=== PATIENT | male | born 1940 | race Caucasian/White ===

== ENCOUNTER → 2018-08-17 | Outpatient (CLI) | payer MEDICARE, OTHER ==
--- NOTE | 2018-08-17 09:41 | WOMENS IMAGING REPORT ---
EXAM DESCRIPTION: BONE DENSITY HIP/SPINE COMPLETED DATE/TIME: 08/17/2018 9:07 am REASON FOR STUDY: M81.0 AGE-RELATED OSTEOPOROSIS WITHOUT CURRENT PATHOLOGICAL FRACTURE M81.0 AGE-RE LATED OSTEOPOROSIS W/O CURRENT PATHOLOGICAL FRAC COMPARISON: None. TECHNIQUE: Dual-Energy X-ray Absorptiometry (DEXA) of the AP Spine and Hip. LIMITATIONS: None. FINDINGS: LUMBAR SPINE: The bone mineral density (BMD) measured from L1-L4 in the AP projection correlates with a T-score of 2.0, which is normal as defined by the World Health Organization. HIP: The bone mineral density (BMD) measured in the left hip correlates with a T-score of -1.1, which is o steopenia as defined by the World Health Organization. IMPRESSION: 1. LUMBAR SPINE: NORMAL. 2. HIP: OSTEOPENIA. COMMENT: The World Health Organization defines low BMD as follows: T-score: Normal: Greater than -1.0 Osteopenia: Between -1.0 and -2.5 Osteoporosis: Less than -2.5 without fractures Established osteoporosis: Less than -2.5 with fractures In general, you may wish to consider: Diagnosis Treatment Follow-up DEXA Normal BMD Prevention 2-3 years Osteopenia Prevention/Therapy 1-2 years Osteoporosis Therapy Yearly TECHNICAL DOCUMENTATION: JOB ID: [id number] [employer]- All Rights Reserved Reading location - IP/workstation name: [email or web address]
== END ==
LOC: WI 08:51
PROVIDERS: ATTEND Urology
DX: M81.0 Age-related osteoporosis without current pathological fracture (principal)
CPT/HCPCS: 77080

== ENCOUNTER → 2018-09-21 | Outpatient (CLI) | payer MEDICARE, OTHER ==
--- NOTE | 2018-09-21 16:16 | RADIOLOGY REPORT (SQ) ---
EXAM DESCRIPTION: NM WHOLE BODY BONE SCAN COMPLETED DATE/TIME: 09/21/2018 4:00 pm REASON FOR STUDY: C61 MALIGNANT NEOPLASM OF PROSTATE C61 MALIGNANT NEOPLASM OF PROSTATE COMPARISON: None available. RADIONUCLIDE AND DOSE: 20.5 millicuries Tc99m MDP. The route of agent administration: Intravenous. ADDITIONAL DRUGS AND DOSES: None. TECHNIQUE: Routine delayed images at 3 hour post radionuclide injection acquired of the bony skeleto n including anterior and posterior whole-body projections and additional focused images as needed. LIMITATIONS: None. FINDINGS: BONES: Solitary focus of fairly uptake most pronounced on posterior views, L1 to the left of midline. While this could be related to posterior element DJD, the uptake is fairly pronounced an d more than expected for simple facet arthropathy. T7-8 disc disease is also suggested. Mild hetero geneous uptake in the sternum, likely related to sternoclavicular arthropathy. Degenerative appearin g uptake in the shoulders and knees. KIDNEYS: Symmetric excretion without obstruction. OTHER: No other significant finding. IMPRESSION: 1. Focal abnormal L1 uptake in the lumbar spine. Potential oligometastatic disease. Consider lumbar spine CT correlation. Other changes are likely degenerative. COMMENT: Quality measure 147: No available prior imaging studies for comparison TECHNICAL DOCUMENTATION: JOB ID: [id number] [email or web address]- All Rights Reserved Reading location - IP/workstation name: [email or web address]
== END ==
LOC: RAD 10:35
PROVIDERS: ATTEND Internal Medicine Medical Oncology
DX: C61 Malignant neoplasm of prostate (principal)
CPT/HCPCS: 78306; A9561; Q9969

== ENCOUNTER 2019-01-17 16:03 | Emergency (ER) | payer MEDICARE, OTHER ==
[2019-01-17] MEDS ORDERED: ASPIRIN 81 MG TABLET, CHEWABLE PO ONE (16:14)
[2019-01-17 16:39] LABS: ABSOLUTE BASOPHILS # (AUTO) 0.1 10^3/uL (0.0-0.2); ABSOLUTE EOSINOPHILS # (AUTO) 0.1 10^3/uL (0.0-0.6); ABSOLUTE LYMPHOCYTES (AUTO) 1.4 10^3/uL (0.5-4.7); ABSOLUTE MONOCYTES (AUTO) 0.7 10^3/uL (0.1-1.4); ABSOLUTE NEUT (AUTO) 7.2 10^3/uL (1.7-8.2); BASOPHILS % (AUTO) 0.7 % (0-2); EOSINOPHILS % (AUTO) 1.3 % (0-6); HEMATOCRIT 35.7 % (37.9-51.0); HEMOGLOBIN 11.6 g/dL (13.5-17.0); LYMPHOCYTES % (AUTO) 14.8 % (13-45); MEAN CORPUSCULAR HEMOGLOBIN 28.1 pg (27.0-33.4); MEAN CORPUSCULAR HGB CONC 32.6 g/dL (32.0-36.0); MEAN CORPUSCULAR VOLUME 86 fl (80-97); MONOCYTES % (AUTO) 7.2 % (3-13); PLATELET COUNT 306 10^3/uL (150-450); RED BLOOD COUNT 4.13 10^6/uL (4.35-5.55); RED CELL DISTRIBUTION WIDTH 15.6 % (11.5-14.0); TOTAL CELLS COUNTED % (AUTO) 100 %; WHITE BLOOD COUNT 9.4 10^3/uL (4.0-10.5)
[2019-01-17 16:58] LABS: ALBUMIN 4.4 g/dL (3.5-5.0); ALKALINE PHOSPHATASE 130 U/L (38-126); ANION GAP 12 (5-19); ASPARTATE AMINO TRANSFERASE 49 U/L (17-59); BILIRUBIN,DIRECT 0.4 mg/dL (0.0-0.4); BILIRUBIN,TOTAL 0.6 mg/dL (0.2-1.3); BLOOD UREA NITROGEN 17 mg/dL (7-20); CALCIUM 9.5 mg/dL (8.4-10.2); CARBON DIOXIDE 27 mmol/L (22-30); CHLORIDE 98 mmol/L (98-107); CREATINE KINASE 246 U/L (55-170); GLUCOSE 283 mg/dL (75-110); POTASSIUM 4.7 mmol/L (3.6-5.0); TOTAL PROTEIN 7.4 g/dL (6.3-8.2)
--- NOTE | 2019-01-17 16:58 | ER Document Report ---
ED Cardiac - General Chief Complaint: Chest Pain Stated Complaint: CHEST PAIN Time Seen by Provider: 01/17/19 16:46 Notes: Patient is complaining of anterior, substernal chest pains. Patient has an extensive and long history of coronary artery disease and cardiac disease and surgeries. In 1996, patient had an NH and had coronary artery franco nts placed. In the following year, 1997, patient underwent coronary bypass surgery. In 2015, patient had his aortic valve replaced and there was a repair of his mitral valve. He did well following these surgical procedures until the recent weeks when he started having more chest pains. Patient and his are in the process of moving and have been lifting boxes. Patient says that over the past few weeks he is experiencing more chest pains. He takes occasional nitroglycerin and gets relief. Today, he was pushing a filing cabinet when he developed his chest pain. He took a nitroglycerin and got relief of the chest pain. Later, he was sitting and eating lunch and he had recurrent pain so he took another nitroglycerin. That pain went away and left him with his current residual "tightness" at this time. Does not have any pain. He has Patient was diagnosed with prostate cancer a couple of years ago and is currently receiving chemotherapy of a hormone injection every 6 months and just recently started on an oral medication, as well. TRAVEL OUTSIDE OF THE [place] IN LAST 30 DAYS: No - Related Data Allergies/Adverse Reactions: No Known Allergies Allergy (Verified 01/17/19 16:05) Past Medical History - Social History Smoking Status: Never Smoker Frequency of alcohol use: None Drug Abuse: None Family History: Reviewed & Not Pertinent Patient has suicidal ideation: No Patient has homicidal ideation: No - Past Medical History Cardiac Medical History: Reports: Hx Coronary Artery Disease, Hx Heart Attack, Hx Hypercholesterolemia, Hx Hypertension Endocrine Medical History: Reports: Hx Diabetes Mellitus Type 2 Past Surgical History: Reports: Hx Cardiac Catheterization, Hx Cardiac Surgery - bypass x2, aortic valve replacement, mitral valve repair, Hx Orthopedic Surgery - b/l TKR, shoulder Review of Systems - Review of Systems Notes: REVIEW OF SYSTEMS: CONSTITUTIONAL : Denies fever. EENT: Denies eye, ear, nose or mouth or throat pain or other symptoms. CARDIOVASCULAR: See HPI. RESPIRATORY: Some shortness of breath but no significant cough or chest congestion. GASTROINTESTINAL: Denies abdominal pain or nausea, vomiting, or diarrhea. GENITOURINARY: Denies difficulty or painful urinating, urinary frequency, blood in urine. MUSCULOSKELETAL: Denies back or neck pain. Denies joint pain or swelling. SKIN: Denies rash or skin lesions. NEUROLOGICAL: Denies LOC or altered mental status. Denies headache. Denies sensory loss or motor deficits. ALL OTHER SYSTEMS REVIEWED AND NEGATIVE. Physical Exam - Vital signs Vitals: Temp Pulse Resp BP Pulse Ox 98.0 F 103 H 16 126/64 H 95 01/17/19 16:13 01/17/19 16:13 01/17/19 16:13 01/17/19 16:13 01/17/19 16:13 Interpretation: Normal Notes: Appears comfortable and denies chest pain at this time. PHYSICAL EXAMINATION: GENERAL: Well-appearing, in no acute distress. Denies any chest pain at this time. HEAD: Atraumatic, normocephalic. EYES: Pupils equal round and reactive to light, extraocular movements intact. ENT: oropharynx clear without exudates. Moist mucous membranes. NECK: Normal range of motion, supple. LUNGS: Breath sounds clear and equal bilaterally. HEART: Regular rate and rhythm ABDOMEN: Soft, nontender. No guarding or rebound. No masses. BACK: No tenderness throughout entire back. EXTREMITIES: Normal range of motion without pain. Negative Homans bilaterally. NEUROLOGICAL: Normal speech, normal gait. Normal sensory, motor, and reflex exams. Awake, alert, and oriented x3. Cranial nerves normal. PSYCH: Normal mood, normal affect. SKIN: Warm, dry, no rashes. Course - Re-evaluation Re-evalutation: 01/17/19 17:04 I attempted to reach this patient's hospice bereavement coordinator, Dr. Pena, but he has left his office for the day. I did get a national secretary there to fax me an EKG from this patient from September of this year. Does not look significantly different from the one today to me. Today's EKG may have some more prominent changes, but there an d similar locations, in the precordial leads and the morphology is similar to me. I contacted [facility] and shared the 2 EKGs for them to compare to determine how to manage the patient. Patient's troponin has come back at 1.23 confirming and NH, although whether this is a STEMI or not is still somewhat in question. I feel the patient is high need to be at a facility with an interventional [facility]er and so the patient is going to be transferred to [facility]. Dr. Lowe is the accepting physician. Patient is going to be given Lovenox, nitro patch, has already received baby aspirin. 01/17/19 17:59 - Vital Signs Vital signs: Temp Pulse Resp BP Pulse Ox 98.6 F 103 H 15 142/73 H 95 01/17/19 20:32 01/17/19 16:13 01/17/19 20:32 01/17/19 20:32 01/17/19 20:32 - Laboratory Result Diagrams: 01/17/19 16:22 01/17/19 16:22 Laboratory results interpreted by me: 01/17/19 01/17/19 01/17/19 16:22 16:22 16:22 RBC 4.13 L Hgb 11.6 L Hct 35.7 L RDW 15.6 H Sodium 136.6 L Glucose 283 H Alkaline Phosphatase 130 H Creatine Kinase 246 H CK-MB (CK-2) 4.64 H - Diagnostic Test Radiology results interpreted by me: 01/17/19 18:04 Chest x-ray shows a patchy parenchymal density in the left lung base which may represent atelectasis or infiltrate, according to the radiologist. Very small left pleural effusion suggested. - EKG Interpretation by Me EKG shows normal: Sinus rhythm Rate: Normal Rhythm: NSR Additional EKG results interpreted by me: 01/17/19 18:00 Patient's EKG has ST and T wave changes in the precordial leads, the 2 through V4. They are similar to findings on an EKG from September of this year, only more prominent on today's EKG. The ST segment is somewhat depressed, almost like a reciprocal change from ischemia/NH. Critical Care Note - Critical Care Note Total time excluding time spent on procedures (mins): 40 Discharge - Discharge Clinical Impression: Chest pain, Positive troponin, Non-STEMI (non-ST elevated myocardial infarction) Condition: Stable Disposition: [facility]
[2019-01-17 17:07] LABS: CREATINE KINASE MB 4.64 ng/mL (<4.55)
[2019-01-17 17:14] LABS: TROPONIN I 1.23 ng/mL
[2019-01-17 17:24] LABS: PROTHROMBIN TIME 13.2 SEC (11.4-15.4)
--- NOTE | 2019-01-17 17:32 | RADIOLOGY REPORT (SQ) ---
EXAM DESCRIPTION: CHEST SINGLE VIEW COMPLETED DATE/TIME: 01/17/2019 5:22 pm REASON FOR STUDY: Chest pain COMPARISON: None. EXAM PARAMETERS: NUMBER OF VIEWS: One view. TECHNIQUE: Single frontal radiographic view of the chest acquired. RADIATION DOSE: NA LIMITATIONS: None. FINDINGS: LUNGS AND PLEURA: Low lung volumes. Slight blunting of the left costophrenic angle may r epresent very small effusion. Patchy parenchymal density suggested at the left lung base may represe nt atelectasis/infiltrate. The right lung is clear. No pneumothorax or pleural effusion. MEDIASTINUM AND HILAR STRUCTURES: No masses. Contour normal. HEART AND VASCULAR STRUCTURES: Heart normal in size. Normal vasculature. BONES: No acute findings. HARDWARE: Prior anterior median sternotomy and valve replacement. OTHER: No other significant finding. IMPRESSION: 1. Low lung volumes. Patchy parenchymal density at the left lung base may represent at electasis/ infiltrate. Very small left pleural suggested. TECHNICAL DOCUMENTATION: JOB ID: [id number] [employer]- All Rights Reserved Reading location - IP/workstation name: [email or web address]
[2019-01-17] MEDS ORDERED: ENOXAPARIN SODIUM INJ 100 MG/1 ML DISP.SYRIN SUBCUT ONE (17:47)
[2019-01-17] MEDS ORDERED: NITROGLYCERIN 2.5 MG (0.1 MG/HR) PATCH.TD24 TD ONE (17:48)
--- NOTE | 2019-01-17 20:39 | EKG REPORT ---
SEVERITY:- ABNORMAL ECG - SINUS RHYTHM FIRST DEGREE AV BLOCK LEFT AXIS DEVIATION ABNORMAL T, CONSIDER ISCHEMIA, ANTERIOR LEADS : Confirmed by: Shavon Delgado MD 17-Jan-2019 20:38:32
[2019-01-17 20:40] VITALS: BP 142/73
--- NOTE | 2019-01-17 20:40 | ER Document Report ---
Doctor's Note Notes: 01/17/19 20:39 Care of this patient was turned over to me by Dr. Vieyra. In short he is an NSTEMI patient awaiting transfer to [facility]. I went and evaluated the patient. He is stable, lying on the cot. [facility] is here for transport. He denies any chest pain, has no questions. He will be transferred for further care of his NSTEMI.
== END 2019-01-17 20:42 | disposition short-term general hospital (02) ==
LOC: ER 16:03
DX: I21.4 Non-ST elevation (NSTEMI) myocardial infarction (principal); I25.10 Atherosclerotic heart disease of native coronary artery without angina pectoris; I25.2 Old myocardial infarction; C61 Malignant neoplasm of prostate; E11.9 Type 2 diabetes mellitus without complications; Z95.1 Presence of aortocoronary bypass graft; Z95.2 Presence of prosthetic heart valve; Z96.653 Presence of artificial knee joint, bilateral
CPT/HCPCS: 93005; 99291; 96372; 36415; 82553; 82550; 85025; 85610; 80053; 84484; 71045; 93010; A9270; J3490; J1650

== ENCOUNTER → 2019-02-15 | Outpatient (CLI) | payer MEDICARE, OTHER ==
--- NOTE | 2019-02-15 12:05 | RADIOLOGY REPORT (SQ) ---
EXAM DESCRIPTION: NM WHOLE BODY BONE SCAN COMPLETED DATE/TIME: 02/15/2019 11:36 am REASON FOR STUDY: PROSTATE CA (C61 C61 MALIGNANT NEOPLASM OF PROSTATE COMPARISON: CT dated 09/24/2018 RADIONUCLIDE AND DOSE: 19.81 millicuries Tc99m HDP. The route of agent administration: Intravenous. ADDITIONAL DRUGS AND DOSES: None. TECHNIQUE: Routine delayed images at 3 hour post radionuclide injection acquired of the bony skeleto n including anterior and posterior whole-body projections and additional focused images as needed. LIMITATIONS: None. FINDINGS: BONES: There is persistent abnormal uptake involving the left aspect of L1. There is now all abnormal uptake in the left aspect of L4. There is abnormal uptake in the right aspect of T8. T here are focal rounded areas of increased uptake involving 2 anterior ribs probable of the 2nd and 3r d as well as the 5th anterior rib on the left. This could represent metastatic disease or could repr esent posttraumatic change. KIDNEYS: Symmetric excretion without obstruction. OTHER: No other significant finding. IMPRESSION: Increasing activity in the dorsal and lumbar spine as described. Rib uptake could be po sttraumatic or metastatic. COMMENT: Quality measure 147: Current bone scan is compared with any available plain radiographs, p rior bone scans, and CT/MRI. TECHNICAL DOCUMENTATION: JOB ID: [id number] [employer]- All Rights Reserved Reading location - IP/workstation name: [email or web address]
== END ==
LOC: RAD 07:20
PROVIDERS: ATTEND Internal Medicine Medical Oncology
DX: C61 Malignant neoplasm of prostate (principal)
CPT/HCPCS: 78306; A9561; Q9969

== ENCOUNTER 2019-11-13 10:55 | Emergency (ER) | payer MEDICARE, OTHER ==
[2019-11-13 11:54] LABS: ABSOLUTE EOSINOPHILS # (AUTO) 0.2 10^3/uL (0.0-0.6); ABSOLUTE LYMPHOCYTES (AUTO) 1.4 10^3/uL (0.5-4.7); ABSOLUTE MONOCYTES (AUTO) 0.5 10^3/uL (0.1-1.4); ABSOLUTE NEUT (AUTO) 5.5 10^3/uL (1.7-8.2); BASOPHILS % (AUTO) 0.6 % (0-2); EOSINOPHILS % (AUTO) 2.2 % (0-6); HEMATOCRIT 31.8 % (37.9-51.0); HEMOGLOBIN 10.4 g/dL (13.5-17.0); LYMPHOCYTES % (AUTO) 18.1 % (13-45); MEAN CORPUSCULAR HEMOGLOBIN 26.9 pg (27.0-33.4); MEAN CORPUSCULAR HGB CONC 32.8 g/dL (32.0-36.0); MEAN CORPUSCULAR VOLUME 82 fl (80-97); MONOCYTES % (AUTO) 6.9 % (3-13); PLATELET COUNT 322 10^3/uL (150-450); RED BLOOD COUNT 3.87 10^6/uL (4.35-5.55); SEGMENTED NEUTROPHILS % (AUTO) 72.2 % (42-78); TOTAL CELLS COUNTED % (AUTO) 100 %; WHITE BLOOD COUNT 7.6 10^3/uL (4.0-10.5)
[2019-11-13 12:16] LABS: ALKALINE PHOSPHATASE 115 U/L (38-126); ANION GAP 10 (5-19); ASPARTATE AMINO TRANSFERASE 26 U/L (17-59); BILIRUBIN,TOTAL 0.4 mg/dL (0.2-1.3); BLOOD UREA NITROGEN 18 mg/dL (7-20); CALCIUM 9.3 mg/dL (8.4-10.2); CARBON DIOXIDE 26 mmol/L (22-30); CHLORIDE 101 mmol/L (98-107); CREATINE KINASE 83 U/L (55-170); GLUCOSE 209 mg/dL (75-110); POTASSIUM 3.7 mmol/L (3.6-5.0); TOTAL PROTEIN 6.8 g/dL (6.3-8.2)
[2019-11-13 12:28] LABS: CREATINE KINASE MB 1.48 ng/mL (<4.55)
[2019-11-13 12:30] LABS: TROPONIN I < 0.012 ng/mL
--- NOTE | 2019-11-13 12:31 | RADIOLOGY REPORT (SQ) ---
EXAM DESCRIPTION: CHEST SINGLE VIEW IMAGES COMPLETED DATE/TIME: 11/13/2019 12:17 pm REASON FOR STUDY: short of breath COMPARISON: None. EXAM PARAMETERS: NUMBER OF VIEWS: One view. TECHNIQUE: Single frontal radiographic view of the chest acquired. RADIATION DOSE: NA LIMITATIONS: None. FINDINGS: LUNGS AND PLEURA: Slight left base atelectasis or scarring. No acute pulmonary consolida tion. No pneumothorax or pleural effusion. MEDIASTINUM AND HILAR STRUCTURES: No masses. Contour normal. HEART AND VASCULAR STRUCTURES: Stable appearance. Stable mild prominence of the pulmonary vasculatu re. BONES: No acute findings. HARDWARE: Prior anterior median sternotomy and valve replacement. OTHER: No other significant finding. IMPRESSION: 1. No acute pulmonary findings. TECHNICAL DOCUMENTATION: JOB ID: [id number] [employer]- All Rights Reserved Reading location - IP/workstation name: [email or web address]
[2019-11-13 13:17] VITALS: BP 107/60
--- NOTE | 2019-11-13 13:35 | EKG REPORT ---
SEVERITY:- ABNORMAL ECG - SINUS RHYTHM INCOMPLETE RBBB AND LAFB BORDERLINE R WAVE PROGRESSION, ANTERIOR LEADS NONSPECIFIC ST-T CHANGES ANTEROLATERAL LEADS : Confirmed by: Prasanna Bills MD 13-Nov-2019 13:34:26
--- NOTE | 2019-11-13 14:34 | ER Document Report ---
Entered by GAIL PURCELL SCRIBE 11/13/19 1206 Acting as scribe for:ANGELA RUANO MD ED Respiratory Problem - General Chief Complaint: Shortness Of Breath Stated Complaint: SHORT OF BREATH Time Seen by Provider: 11/13/19 12:03 Primary Care Provider: HELDER KRAMER MD [Primary Care Provider] - Follow up as needed Mode of Arrival: Ambulatory Information source: Patient Notes: This 79 year old male patient presents to the emergency department today with complaints of shortness of breath and a blood pressure of 152/78 today while li fting weights at cardiac rehab. Patient states that he had very mild chest pain today when walking from his car into cardiac rehab which is not unusual for him. Patient states he normally would take a nitroglycerin and the pain would subside but he did not take one today. Patient states he sat down at the front office specialist before going back to the cardiac rehab room and his pain subsided while at rest. Patient states he had no pain during cardiac rehab. TRAVEL OUTSIDE OF THE [place] IN LAST 30 DAYS: No - Related Data Allergies/Adverse Reactions: No Known Allergies Allergy (Verified 01/17/19 16:05) Past Medical History - General Information source: Patient, [facility] Records - Social History Smoking Status: Former Smoker Cigarette use (# per day): No Chew tobacco use (# tins/day): No Smoking Education Provided: No Frequency of alcohol use: None Drug Abuse: None Lives with: Family Family History: Reviewed & Not Pertinent - Past Medical History Cardiac Medical History: Reports: Hx Coronary Artery Disease, Hx Heart Attack, Hx Hypercholesterolemia, Hx Hypertension Endocrine Medical History: Reports: Hx Diabetes Mellitus Type 2 Past Surgical History: Reports: Hx Cardiac Catheterization, Hx Cardiac Surgery - bypass x2, aortic valve replacement, mitral valve repair, Hx Orthopedic Surgery - b/l TKR, shoulder Review of Systems - Review of Systems Constitutional: No symptoms reported EENT: No symptoms reported Cardiovascular: See HPI, Chest pain Respiratory: See HPI, Short of breath Gastrointestinal: No symptoms reported Genitourinary: No symptoms reported Male Genitourinary: No symptoms reported Musculoskeletal: No symptoms reported Skin: No symptoms reported Hematologic/Lymphatic: No symptoms reported Neurological/Psychological: No symptoms reported -: Yes All other systems reviewed and negative Physical Exam - Vital signs Vitals: Temp 98.4 F 11/13/19 11:00 - Notes Notes: Physical Exam: General: Alert, appears well. HEENT: Normocephalic. Atraumatic. PERRL. Extraocular movements intact. Oropharynx clear. Neck: Supple. Non-tender. Respiratory: No respiratory distress. Clear and equal breath sounds bilaterally. Cardiovascular: Regular rate and rhythm. Abdominal: Normal Inspection. Non-tender. No distension. Normal Bowel Sounds. Back: No gross abnormalities. Extremities: Moves all four extremities. Upper extremities: Normal inspection. Normal ROM. Lower extremities: Normal inspection. No edema. Normal ROM. Neurological: Normal cognition. AAOx4. Normal speech. Psychological: Normal affect. Normal Mood. Skin: Warm. Dry. Normal color. Course - Re-evaluation Re-evalutation: 11/13/19 12:53 During the physical exam, the patient feels back to his baseline. His blood pressure is 111/60 which he states is normal for him. He feels comfortable returning home, and thinks that if he had taken nitroglycerin when he first went into the cardiac rehab, that he may not have had these issues today. - Vital Signs Vital signs: Temp Pulse Resp BP Pulse Ox 98.4 F 25 H 107/60 95 11/13/19 11:15 11/13/19 13:01 11/13/19 13:01 11/13/19 13:01 - Laboratory Result Diagrams: 11/13/19 11:32 11/13/19 11:32 Laboratory results interpreted by me: 11/13/19 11/13/19 11/13/19 11:10 11:32 11:32 RBC 3.87 L Hgb 10.4 L Hct 31.8 L MCH 26.9 L RDW 16.0 H Glucose 209 H POC Glucose 214 H NT-Pro-B Natriuret Pep 11/13/19 11:32 RBC Hgb Hct MCH RDW Glucose POC Glucose NT-Pro-B Natriuret Pep 529 H - Diagnostic Test Radiology reviewed: Image reviewed, Reports reviewed - Chest x-ray shows no acute cardiopulmonary findings. - EKG Interpretation by Me EKG shows normal: Sinus rhythm, [place], Intervals, ST-T Waves. abnormal: QRS Complexes - Borderline R wave progression in the anterior leads Rate: Normal - 95 Rhythm: NSR [place]/QRS: RBBB - IRBBB, LAHB/LAFB Discharge - Discharge Clinical Impression: Chest pain due to coronary artery disease, Chronic stable angina Condition: Stable Disposition: HOME, SELF-CARE Additional Instructions: Continue taking your regular medications. Take your nitroglycerin when you have pain, as you usually do. Follow-up with your binder selector this week if any further problems. RETURN TO THE EMERGENCY ROOM IF ANY NEW OR WORSENING SYMPTOMS. Referrals: HELDER KRAMER MD [Primary Care Provider] - Follow up as needed I personally performed the services described in the documentation, reviewed and edited the documentation which was dictated to the scribe in my presence, and it accurately records my words and actions.
== END 2019-11-13 13:17 | disposition home or self-care (01) ==
LOC: ER 10:55
DX: R07.9 Chest pain, unspecified (principal); I25.10 Atherosclerotic heart disease of native coronary artery without angina pectoris; R06.02 Shortness of breath; I10 Essential (primary) hypertension; X50.0XXA Overexertion from strenuous movement or load, initial encounter; Z87.891 Personal history of nicotine dependence; I25.2 Old myocardial infarction; E11.9 Type 2 diabetes mellitus without complications
CPT/HCPCS: 36415; 71045; 80053; 82550; 82553; 82962; 83880; 84484; 85025; 93005; 93010; 99285